=== PATIENT | male | born 1950 | race Caucasian/White ===

== ENCOUNTER 2019-10-02 11:20 | Inpatient (IN) | payer MEDICARE ==
[~2019-10-02] VITALS: Ht 182.9 cm; Wt 122.1 kg
[2019-10-02] MEDS ORDERED: CEFTRIAXONE SODIUM 1 GM ONE (12:21)
[2019-10-02 12:26] LABS: BASOPHILS % (AUTO) 0.9 % (0.0-5.0); EOSINOPHILS % (AUTO) 2.6 % (0.0-8.0); LYMPHOCYTES % (AUTO) 8.5 % (21.0-51.0); MEAN CORPUSCULAR HEMOGLOBIN 26.7 pg (27.0-33.0); MEAN CORPUSCULAR HGB CONC 30.9 g/dL (32.0-36.0); MEAN CORPUSCULAR VOLUME 86.4 fL (79-99); NEUTROPHILS % (AUTO) 77.8 % (40.0-77.0); PLATELET COUNT (AUTO) 219 K/uL (130-400); RED BLOOD CELL COUNT(AUTO) 4.05 MIL/uL (4.50-6.20); RED CELL DISTRIBUTION WIDTH 14.8 % (11.0-15.5); WHITE BLOOD COUNT (AUTO) 8.2 K/uL (4.8-10.8)
[2019-10-02 12:34] LABS: CREATININE 1.2 mg/dL (0.5-1.5); POTASSIUM 4.3 mmol/L (3.5-5.1)
[2019-10-02 12:36] LABS: INR 1.1 (0.85-1.15); PARTIAL THROMBOPLASTIN TIME 27.8 SEC (26.3-35.5); PROTHROMBIN TIME 11.8 SEC (9.6-11.6)
[2019-10-02 12:39] LABS: ALBUMIN 3.7 g/dL (3.5-5.0); BILIRUBIN,TOTAL 0.6 mg/dL (0.2-1.0); TOTAL PROTEIN, SERUM 7.4 g/dL (6.0-8.3)
[2019-10-02] MEDS ORDERED: ACETAMINOPHEN 325 MG TAB PO PRN ×2 (18:15)
[2019-10-02] MEDS ORDERED: ONDANSETRON HCL 4 MG/2 ML VIAL IV PRN (18:15)
[2019-10-02 18:16] LABS: HEMOGLOBIN A1C 7.3 % (4.0-6.0)
[2019-10-02] MEDS ORDERED: COMPOUND IV REFRIGERATED 1 EACH IVSOLN MISC PRN (19:15)
[2019-10-02] MEDS ORDERED: VANCOMYCIN PROTOCOL PER PHARMACY IV SCH (19:15)
[2019-10-02 19:54] LABS: ALBUMIN 3.5 g/dL (3.5-5.0); BILIRUBIN,TOTAL 0.8 mg/dL (0.2-1.0); CREATININE 1.1 mg/dL (0.5-1.5); POTASSIUM 4.3 mmol/L (3.5-5.1); TOTAL PROTEIN, SERUM 7.3 g/dL (6.0-8.3)
[2019-10-02 19:59] LABS: CREATINE KINASE, TOTAL 132 U/L (21-232); MYOGLOBIN 74 ng/mL (10-92); TROPONIN I < 0.04 ng/mL (0.00-0.06)
[2019-10-02 20:00] VITALS: BP 168/59
--- NOTE | 2019-10-02 21:08 | NUR ---
Patient received to room, having SOB, hob elevated, 02 placed in use per n/c at 2 liters. 02 up to 94%. Jessica BRIDGESP called and made aware of patient's status. I received orders for duo nebs, now and every 6 hours, continue with the 02 at 2 liters per n/c. Rt, called and informed of patient's status, informed of stat duo nebs, verbalized understanding.
[2019-10-02] MEDS ORDERED: IPRATROPIUM/ALBUTEROL SULFATE 3 ML SOLUTION IH SCH (21:15)
--- NOTE | 2019-10-02 21:57 | NUR ---
paged via answering service at [phone], returned call at [phone]. Informed of consults, informed of patient's condition, and of arterial, and venous dopplers done, results, also made him aware patient of patient's history, DM,COPD, CABG x5, in 1986. Informed him also of the EKG results SR W/VPC 79. Dr. Negrete stated to go ahead and have the day shift call the office in the morning and let them know of the consult. I asked the doctor if he would want patient on Tele. he said no.
[2019-10-02] MEDS: VANCOMYCIN 1.75 GM in SODIUM CHLORIDE 0.9% 250 ML IV SCH (23:01)
[2019-10-02] MEDS: FAMOTIDINE/PF 20 MG/2 ML VIAL IV SCH (23:01)
[2019-10-02] MEDS: ZOSYN 3.375GM+NS 50ML 50 ML IV SCH (23:08)
[2019-10-02] MEDS: MORPHINE SULFATE 2 MG/ML 1ML SYG IV PRN (23:10)
[2019-10-02] MEDS ORDERED: INSULIN HUMULIN R 100 UNIT/ML 3ML SQ SCH (23:30)
[2019-10-03] VITALS (7 sets, daily range): BP systolic 107–184; BP diastolic 63–79
[2019-10-03 04:01] LABS: BASOPHILS % (AUTO) 0.9 % (0.0-5.0); EOSINOPHILS % (AUTO) 1.7 % (0.0-8.0); HEMATOCRIT 34.3 % (42-54); LYMPHOCYTES % (AUTO) 7.7 % (21.0-51.0); MEAN CORPUSCULAR HEMOGLOBIN 26.3 pg (27.0-33.0); MEAN CORPUSCULAR HGB CONC 30.3 g/dL (32.0-36.0); MEAN CORPUSCULAR VOLUME 86.6 fL (79-99); MONOCYTES % (AUTO) 11.7 % (3.0-13.0); NEUTROPHILS % (AUTO) 77.6 % (40.0-77.0); PLATELET COUNT (AUTO) 227 K/uL (130-400); RED BLOOD CELL COUNT(AUTO) 3.96 MIL/uL (4.50-6.20); RED CELL DISTRIBUTION WIDTH 14.6 % (11.0-15.5); WHITE BLOOD COUNT (AUTO) 7.7 K/uL (4.8-10.8)
[2019-10-03 04:21] LABS: CHOLESTEROL 102 mg/dL (<200); HDL CHOLESTEROL 43 mg/dL (29-71); LDL DIRECT 51 mg/dL (0-99); PHOSPHORUS 3.1 mg/dL (2.5-4.9); TRIGLYCERIDES 68 mg/dL (30-200)
[2019-10-03 05:04] LABS: ERYTHROCYTE SEDIMENTATION RATE 40 MM/HR (0-20)
[2019-10-03] MEDS: ZOSYN 3.375GM+NS 50ML 50 ML IV SCH ×3 (06:13→21:13)
[2019-10-03] MEDS: IPRATROPIUM/ALBUTEROL SULFATE 3 ML SOLUTION IH SCH ×3 (07:00→18:46)
[2019-10-03] MEDS: INSULIN LISPRO 100 UNIT/ML 3ML SQ SCH ×7 (07:01→21:19)
[2019-10-03] MEDS ORDERED: INSULIN HUMULIN R 100 UNIT/ML 3ML SQ SCH (07:30)
--- NOTE | 2019-10-03 07:40 | NUR ---
Report given to Shasta BORJAS regarding patient's status, reason patient is here for informed her of notifying and him stating to have day shift call the office in the morning and inform them of the consult. Informed incoming nurse of patient history, and his progress during the night. Also informed her patient came in the ambulance and did not bring his medication with him. Patient instructed to please let his know to bring in medications and his BIPAP, patient verbalized understanding.
[2019-10-03] MEDS: VANCOMYCIN 1.75 GM in SODIUM CHLORIDE 0.9% 250 ML IV SCH ×2 (08:00→20:14)
--- NOTE | 2019-10-03 08:10 | NUR ---
CONSULTS PAGED CROWN ASSEMBLY MACHINE SET UP MECHANIC INFORMED ME DR. MASTERS IS AWARE OF CONSULT. DR. TERRAZAS HAS BEEN PAGED REGARDING CONSULT, AND DR. BISHNU VENCES ALSO HAS BEEN PAGED REGARDING CONSULT.
[2019-10-03] MEDS: ENOXAPARIN SODIUM 30 MG/0.3 ML SQ SCH (10:25)
[2019-10-03] MEDS: FAMOTIDINE/PF 20 MG/2 ML VIAL IV SCH ×2 (10:25→21:13)
[2019-10-03] MEDS: ASPIRIN 81MG TAB.CHEW PO SCH (10:26)
--- NOTE | 2019-10-03 10:30 | NUR ---
ASSUMED CARE PT IS SLEEPING WITH EYES CLOSED, NO DISTRESS NOTED.
--- NOTE | 2019-10-03 13:25 | NUR ---
CALL FROM DR. TERRAZAS T/C FROM , ORDERS FOR MRI WITHOUT CONTRAST OF RIGHT FOOT AND 3 VIEW X RAY OF FOOT, STATES ALIS COME LATER TO SEE HIM.
--- NOTE | 2019-10-03 13:55 | NUR ---
DR. SONAM SANTOS HERE TO SEE PT, NO ORDERS, CONTINUE ANTIBIOTICS
--- NOTE | 2019-10-03 15:15 | NUR ---
BACK FROM X-RAY DEPT RT. FOOT MRI AND XRAY DONE.
--- NOTE | 2019-10-03 16:05 | NUR ---
DR. VENCES WITH [facility] IN TO SEE PT. WILL ENTER ORDERS
--- NOTE | 2019-10-03 16:23 | NUR ---
RT. LOWER EXTREMITY WITH SOME SWELLING AND SKIN DRY ,FLAKY AND RED . ULCER NOTED TO RT. GREATER TOE. AREA NECROTIC.
[2019-10-03] MEDS ORDERED: IOHEXOL-350 75 ML VIAL IV ONE (18:44)
[2019-10-03] MEDS ORDERED: IOHEXOL-350 50ML VIAL IV ONE (18:44)
--- NOTE | 2019-10-03 18:48 | NUR ---
CONSENT SIGNED FOR CT. ANGIO ABD. AORTA WITH RUN OFF.
--- NOTE | 2019-10-03 19:52 | NUR ---
SKIN ASS. ADDENDUM BILAT. LE HYPERPIGMENTED AREAS DISTAL 3/4TH, DRY SCALY APPEARANCE , Addendum: 10/04/19 at 0450 by SCOT WALSH RN RN Amended: Links added.
[2019-10-03] MEDS: ATORVASTATIN CALCIUM 20 MG TABLET PO SCH (21:13)
[2019-10-03] MEDS: INSULIN GLARGINE 100 UNITS/ML 10 ML VIAL SQ SCH (21:18)
[2019-10-03] MEDS: FUROSEMIDE 10 MG/ML 2ML VIAL IV SCH (22:52)
[2019-10-04] MEDS: IPRATROPIUM/ALBUTEROL SULFATE 3 ML SOLUTION IH SCH ×5 (00:08→23:15)
[2019-10-04 03:43] VITALS: BP 139/64
[2019-10-04] MEDS: ZOSYN 3.375GM+NS 50ML 50 ML IV SCH ×3 (04:45→20:27)
[2019-10-04] MEDS: INSULIN LISPRO 100 UNIT/ML 3ML SQ SCH ×7 (06:57→22:29)
[2019-10-04] MEDS: FUROSEMIDE 10 MG/ML 2ML VIAL IV SCH (08:49)
[2019-10-04] MEDS: FAMOTIDINE/PF 20 MG/2 ML VIAL IV SCH ×2 (08:49→20:27)
[2019-10-04] MEDS: ENOXAPARIN SODIUM 30 MG/0.3 ML SQ SCH (08:50)
[2019-10-04] MEDS: VANCOMYCIN 1.75 GM in SODIUM CHLORIDE 0.9% 250 ML IV SCH ×2 (08:50→20:27)
[2019-10-04] MEDS: ASPIRIN 81MG TAB.CHEW PO SCH (08:50)
[2019-10-04 09:20] LABS: HEMATOCRIT 32.2 % (42-54); MEAN CORPUSCULAR HEMOGLOBIN 26.8 pg (27.0-33.0); MEAN CORPUSCULAR HGB CONC 31.1 g/dL (32.0-36.0); MEAN CORPUSCULAR VOLUME 86.3 fL (79-99); RED BLOOD CELL COUNT(AUTO) 3.73 MIL/uL (4.50-6.20); RED CELL DISTRIBUTION WIDTH 14.8 % (11.0-15.5)
[2019-10-04 09:30] LABS: BILIRUBIN,TOTAL 0.8 mg/dL (0.2-1.0); POTASSIUM 4.1 mmol/L (3.5-5.1); TOTAL PROTEIN, SERUM 6.6 g/dL (6.0-8.3)
[2019-10-04 09:57] VITALS: BP 104/65
--- NOTE | 2019-10-04 12:00 | NUR ---
INITIAL SW spoke with patient. Patient lives with spouse, Keren Yoon. No home services. DME: glucometer (uses insulin). Patient states he needs help with AD:'s due to back problem but drives. No PCP at this time. Pharmacy is [facility] in [place]. DCP is home. Addendum: 10/04/19 at 1202 by MAYELA CARLSON SS Amended: Links added.
[2019-10-04 12:32] VITALS: BP 129/45
[2019-10-04] MEDS: FUROSEMIDE 20 MG TABLET PO SCH (15:45)
[2019-10-04 18:45] VITALS: BP 155/58
[2019-10-04 20:13] VITALS: BP 155/49
[2019-10-04] MEDS: ATORVASTATIN CALCIUM 20 MG TABLET PO SCH (20:27)
[2019-10-04] MEDS: MORPHINE SULFATE 2 MG/ML 1ML SYG IV PRN (21:50)
[2019-10-04] MEDS: INSULIN GLARGINE 100 UNITS/ML 10 ML VIAL SQ SCH (22:28)
[2019-10-04 23:53] VITALS: BP 147/57
[2019-10-05 04:12] VITALS: BP 133/47
[2019-10-05] MEDS: ZOSYN 3.375GM+NS 50ML 50 ML IV SCH ×3 (05:11→20:02)
[2019-10-05] MEDS: FUROSEMIDE 20 MG TABLET PO SCH ×2 (05:11→17:08)
[2019-10-05 05:54] LABS: BASOPHILS % (AUTO) 0.7 % (0.0-5.0); EOSINOPHILS % (AUTO) 5.1 % (0.0-8.0); HEMATOCRIT 32.3 % (42-54); LYMPHOCYTES % (AUTO) 9.7 % (21.0-51.0); MEAN CORPUSCULAR HEMOGLOBIN 26.5 pg (27.0-33.0); MEAN CORPUSCULAR HGB CONC 30.7 g/dL (32.0-36.0); MEAN CORPUSCULAR VOLUME 86.6 fL (79-99); MONOCYTES % (AUTO) 11.6 % (3.0-13.0); NEUTROPHILS % (AUTO) 72.5 % (40.0-77.0); PLATELET COUNT (AUTO) 215 K/uL (130-400); RED BLOOD CELL COUNT(AUTO) 3.73 MIL/uL (4.50-6.20); RED CELL DISTRIBUTION WIDTH 14.8 % (11.0-15.5); WHITE BLOOD COUNT (AUTO) 8.1 K/uL (4.8-10.8)
[2019-10-05 06:12] LABS: ALBUMIN 2.8 g/dL (3.5-5.0); CREATININE 0.9 mg/dL (0.5-1.5); TOTAL PROTEIN, SERUM 6.6 g/dL (6.0-8.3)
[2019-10-05] MEDS: IPRATROPIUM/ALBUTEROL SULFATE 3 ML SOLUTION IH SCH ×3 (06:13→18:35)
[2019-10-05] MEDS: INSULIN LISPRO 100 UNIT/ML 3ML SQ SCH ×7 (07:29→20:46)
[2019-10-05 08:14] VITALS: BP 164/63
[2019-10-05] MEDS: VANCOMYCIN 1.75 GM in SODIUM CHLORIDE 0.9% 250 ML IV SCH ×2 (08:36→20:58)
[2019-10-05] MEDS: ASPIRIN 81MG TAB.CHEW PO SCH (08:37)
[2019-10-05] MEDS: FAMOTIDINE/PF 20 MG/2 ML VIAL IV SCH ×2 (08:37→20:02)
[2019-10-05] MEDS: ENOXAPARIN SODIUM 30 MG/0.3 ML SQ SCH (08:38)
[2019-10-05 11:44] VITALS: BP 143/69
[2019-10-05] MEDS ORDERED: SODIUM CHLORIDE 0.9% 500ML 500 ML IV SCH (14:45)
[2019-10-05 15:48] VITALS: BP 153/57
[2019-10-05] MEDS: ASPIRIN 81 MG EC TAB PO SCH (19:15)
[2019-10-05] MEDS ORDERED: LISINOPRIL 5 MG TABLET PO SCH (19:15)
[2019-10-05 20:02] VITALS: BP 143/53
[2019-10-05] MEDS: ATORVASTATIN CALCIUM 20 MG TABLET PO SCH (20:02)
--- NOTE | 2019-10-05 20:05 | NUR ---
MEDS SHIFT ASSESSMENT DONE, PLEASE REFER TO CHART. DUE MEDS ADMINISTERED, TOLERATED WELL. INSTRUCTED TO BE NPO POST MN FOR PROCEDURE IN AM. PT VERBALIZES UNDERSTANDING. KEPT RESTED IN THE BED WITH HOB ELEVATED. CALL LIGHT WITHIN REACH. WILL MONITOR PT. Addendum: 10/05/19 at 2250 by RUSTY WOODS RN RN Amended: Links added.
--- NOTE | 2019-10-05 20:37 | NUR ---
TROUGH VANCO TROUGH LEVEL FAXED TO [facility] AND CALLED FOR DOSING, SPOKED WITH NADIA.
[2019-10-05] MEDS: INSULIN GLARGINE 100 UNITS/ML 10 ML VIAL SQ SCH (20:47)
--- NOTE | 2019-10-05 21:40 | NUR ---
PROCEDURE CALLED [facility]OURCE NURSE FOR SCHEDULED PROCEDURE. NONE SCHEDULED FOR PT. FAXED ORDER TO [facility] FOR POSTING OF PROCEDURE.
--- NOTE | 2019-10-05 22:30 | NUR ---
MED LIST ASKED PT OF HOME MEDS. REVIEW ANALYST WAS INFORMED THAT 2 NURSE ALREADY GOT LIST. EXPLAINED TO PT THAT NONE WAS LISTED ON HIS CHART AND UNABLE TO FIND LIST. VERIFIED LIST OF MEDS WITH PT'S VIA PHONE. HOME MED LIST COMPLETED IN THE COMPUTER.
[2019-10-05] MEDS ORDERED: B-CO1TAB PO (23:12)
[2019-10-05] MEDS ORDERED: CARV12.511 PO (23:12)
[2019-10-05] MEDS ORDERED: ASPI-1197 PO (23:12)
[2019-10-05] MEDS ORDERED: INSREG SQ (23:12)
[2019-10-05] MEDS ORDERED: MV-M1TAB20 PO (23:12)
[2019-10-05] MEDS ORDERED: POTA20TA82 PO (23:12)
[2019-10-05] MEDS ORDERED: NPH,100V11 SQ (23:12)
[2019-10-05] MEDS ORDERED: CALC-1038 PO (23:12)
[2019-10-05] MEDS ORDERED: SIMV-46 PO (23:12)
[2019-10-05] MEDS ORDERED: METF-526 PO (23:12)
[2019-10-05] MEDS ORDERED: MULT-1258 PO (23:12)
[2019-10-05] MEDS ORDERED: FURO40TA5 PO (23:12)
[2019-10-05] MEDS ORDERED: LISI-613 PO (23:12)
[2019-10-05] MEDS ORDERED: OMEG-125 PO (23:12)
[2019-10-06] VITALS (12 sets, daily range): BP systolic 83–173; BP diastolic 55–81
--- NOTE | 2019-10-06 01:26 | NUR ---
U/A PT INSISTED TO GO TO THE RESTROOM TO HAVE A BM. PT REFUSED TO USE THE BEDSIDE COMMODE. URINE SAMPLE COLLECTED BY PCP AND SENT TO LAB FOR ANALYSIS. PT UNABLE TO MOVE HIS BOWELS AT THIS TIME.
[2019-10-06 01:51] LABS: APPEARANCE,URINE Clear (CLEAR); BILIRUBIN,URINE Negative (NEGATIVE); COLOR,URINE Yellow (YELLOW); GLUCOSE, URINE (UA) 500 mg/dL (NEGATIVE); KETONES,URINE Negative (NEGATIVE); LEUKOCYTE ESTERASE ,URINE Negative (NEGATIVE); NITRATE,URINE Negative (NEGATIVE); OCCULT BLOOD,URINE Negative (NEGATIVE); PROTEIN,URINE POS 1+ mg/dL (NEGATIVE)
[2019-10-06] MEDS: ZOSYN 3.375GM+NS 50ML 50 ML IV SCH ×3 (04:06→21:14)
[2019-10-06] MEDS: FUROSEMIDE 20 MG TABLET PO SCH ×2 (04:07→16:40)
[2019-10-06 05:38] LABS: BASOPHILS % (AUTO) 0.7 % (0.0-5.0); EOSINOPHILS % (AUTO) 6.2 % (0.0-8.0); HEMATOCRIT 32.7 % (42-54); LYMPHOCYTES % (AUTO) 10.3 % (21.0-51.0); MEAN CORPUSCULAR HGB CONC 30.3 g/dL (32.0-36.0); MEAN CORPUSCULAR VOLUME 85.8 fL (79-99); MONOCYTES % (AUTO) 10.2 % (3.0-13.0); NEUTROPHILS % (AUTO) 72.2 % (40.0-77.0); PLATELET COUNT (AUTO) 224 K/uL (130-400); RED BLOOD CELL COUNT(AUTO) 3.81 MIL/uL (4.50-6.20); RED CELL DISTRIBUTION WIDTH 14.6 % (11.0-15.5); WHITE BLOOD COUNT (AUTO) 7.6 K/uL (4.8-10.8)
[2019-10-06] MEDS: INSULIN LISPRO 100 UNIT/ML 3ML SQ SCH ×7 (05:52→21:18)
--- NOTE | 2019-10-06 05:54 | NUR ---
ROUNDS PT FAIRLY ASLEEP, NO DISTRESS NOTED. KEPT UNDISTURBED. KEPT NPO FOR PROCEDURE TODAY. FOR MORE CARE AND MANAGEMENT.
[2019-10-06 06:02] LABS: ALBUMIN 2.8 g/dL (3.5-5.0); BILIRUBIN,TOTAL 0.8 mg/dL (0.2-1.0); POTASSIUM 4.1 mmol/L (3.5-5.1); TOTAL PROTEIN, SERUM 6.8 g/dL (6.0-8.3)
[2019-10-06] MEDS: IPRATROPIUM/ALBUTEROL SULFATE 3 ML SOLUTION IH SCH ×3 (06:19→13:16)
[2019-10-06] MEDS: FAMOTIDINE/PF 20 MG/2 ML VIAL IV SCH ×2 (08:42→21:13)
[2019-10-06] MEDS: VANCOMYCIN 1.75 GM in SODIUM CHLORIDE 0.9% 250 ML IV SCH ×2 (08:42→21:15)
[2019-10-06] MEDS: ASPIRIN 81 MG EC TAB PO SCH (09:00)
[2019-10-06] MEDS ORDERED: IODIXANOL 320 MG/ML 100 ML VIAL ONE (11:34)
[2019-10-06] MEDS ORDERED: LIDOCAINE HCL 2% 20ML ONE (11:34)
[2019-10-06] MEDS ORDERED: NITROGLYCERIN 2 MG/VIAL VIAL IV ONE (11:34)
[2019-10-06] MEDS ORDERED: HEPARIN SODIUM 1000UNIT/ML 10ML VIAL ONE (11:34)
[2019-10-06] MEDS ORDERED: LABETALOL HCL 5 MG/ML 20ML VIAL IV ONE (11:59)
[2019-10-06] MEDS ORDERED: SODIUM CHLORIDE 0.9% 1000ML 1,000 ML IV SCH (12:23)
--- NOTE | 2019-10-06 13:28 | NUR ---
CM Note: [facility] approval CM spoke to Jeannette aguilar/Davey, pt has approval. MOT filled out, pending and reginaldo super to sign. EMS arranged and faxed for today, primary nurse to call [facility] once pt ready to DC. Primary nurse aware. CM to cont to follow up.
--- NOTE | 2019-10-06 14:55 | NUR ---
PATIENT TRANSFER PATIENT TRANSFERRED TO ROOM 227 AT APPROX 1445 HOURS. REPORT GIVEN TO CHRISTIAN BORJAS AT APPROX 1430.
--- NOTE | 2019-10-06 15:00 | NUR ---
ARRIVAL TO ROOM 227 PT IS AAOX3 DENIES PAIN DENIES SOB. BEDREST IN PROGRESS. LEFT GROIN DSTAT IN PLACE, CLEAN DRY INTACT. NO HEMATOMA NO OOZING NOTED. CALL LIGHT WITHIN REACH.
[2019-10-06] MEDS ORDERED: ALBUTEROL INHALER 90MCG/INH IH SCH (18:00)
--- NOTE | 2019-10-06 19:57 | NUR ---
NOTE PATIENT TAKEN VIA BED BY RADIOLOGY STAFF FOR CT SCAN.
--- NOTE | 2019-10-06 20:26 | NUR ---
NOTE PATIENT WAS RETURNED TO ROOM.
[2019-10-06] MEDS: ATORVASTATIN CALCIUM 20 MG TABLET PO SCH (21:13)
[2019-10-06] MEDS: LISINOPRIL 5 MG TABLET PO SCH (21:13)
[2019-10-06] MEDS: CARVEDILOL 6.25 MG TABLET PO SCH (21:14)
[2019-10-06] MEDS: INSULIN GLARGINE 100 UNITS/ML 10 ML VIAL SQ SCH (21:18)
[2019-10-07 04:00] VITALS: BP 159/80
[2019-10-07] MEDS: FUROSEMIDE 20 MG TABLET PO SCH ×2 (05:13→15:18)
[2019-10-07] MEDS: ZOSYN 3.375GM+NS 50ML 50 ML IV SCH ×3 (05:13→21:19)
[2019-10-07] MEDS: INSULIN LISPRO 100 UNIT/ML 3ML SQ SCH ×7 (05:42→20:26)
[2019-10-07 06:28] LABS: BASOPHILS % (AUTO) 0.8 % (0.0-5.0); EOSINOPHILS % (AUTO) 4.9 % (0.0-8.0); HEMATOCRIT 33.6 % (42-54); LYMPHOCYTES % (AUTO) 8.4 % (21.0-51.0); MEAN CORPUSCULAR HGB CONC 30.4 g/dL (32.0-36.0); MEAN CORPUSCULAR VOLUME 85.7 fL (79-99); MONOCYTES % (AUTO) 10.2 % (3.0-13.0); NEUTROPHILS % (AUTO) 75.4 % (40.0-77.0); PLATELET COUNT (AUTO) 238 K/uL (130-400); RED BLOOD CELL COUNT(AUTO) 3.92 MIL/uL (4.50-6.20); RED CELL DISTRIBUTION WIDTH 14.6 % (11.0-15.5)
[2019-10-07 06:49] LABS: ALBUMIN 2.9 g/dL (3.5-5.0); BILIRUBIN,TOTAL 0.8 mg/dL (0.2-1.0); CREATININE 1.1 mg/dL (0.5-1.5); POTASSIUM 4.4 mmol/L (3.5-5.1)
[2019-10-07] MEDS: FAMOTIDINE/PF 20 MG/2 ML VIAL IV SCH ×2 (07:53→21:18)
[2019-10-07] MEDS: ASPIRIN 81 MG EC TAB PO SCH (07:53)
[2019-10-07] MEDS: POTASSIUM CHLORIDE 20 MEQ ERTAB PO SCH (07:54)
[2019-10-07] MEDS: LISINOPRIL 5 MG TABLET PO SCH ×2 (07:56→21:19)
[2019-10-07] MEDS: CARVEDILOL 6.25 MG TABLET PO SCH ×2 (07:56→21:19)
[2019-10-07] MEDS: ENOXAPARIN SODIUM 40 MG/0.4 ML SYRINGE SQ SCH (07:57)
[2019-10-07 08:23] VITALS: BP 158/79
[2019-10-07] MEDS ORDERED: FUROSEMIDE 40 MG TABLET PO SCH (09:00)
[2019-10-07] MEDS: VANCOMYCIN 1.75 GM in SODIUM CHLORIDE 0.9% 250 ML IV SCH ×2 (10:09→21:22)
[2019-10-07] MEDS ORDERED: REGADENOSON 0.4 MG/5 ML PF SYG IVP SCH (12:15)
[2019-10-07 12:31] VITALS: BP 156/72
[2019-10-07 16:39] VITALS: BP 134/53
[2019-10-07 20:09] VITALS: BP 127/79
[2019-10-07] MEDS: FUROSEMIDE 10 MG/ML 4ML VIAL IV SCH (21:18)
[2019-10-07] MEDS: ATORVASTATIN CALCIUM 40 MG TABLET PO SCH (21:19)
[2019-10-07] MEDS: INSULIN GLARGINE 100 UNITS/ML 10 ML VIAL SQ SCH (21:21)
--- NOTE | 2019-10-07 22:30 | NUR ---
REPORT GIVEN TO 3RD FLOOR NURE PT TRANSFERRED PT DENIES SOB OR CHEST PAIN
[2019-10-07 23:05] VITALS: BP 142/70
--- NOTE | 2019-10-07 23:08 | NUR ---
NOTE 2239 RECEIVED REPORT VIA PHONE FROM Eliana CHEN RN. WILL BE BRINGING PATIENT. UP TO FLOOR. 2309 PATIENT IN ROOM. ALERT AND ORIENTED. PROVIDED ORIENTATION TO ROOM AND CALL LIGHT. BED ALARM ACTIVATED. HAS VANCOMYCIN INFUSING. DENIES ANY PAINS OR DISCOMFORTS. DENIES SOB. HAS CPAP AT BEDSIDE, BUT NOT CURRENTLY ON.
[2019-10-08 04:00] VITALS: BP 148/65
[2019-10-08 07:19] LABS: POTASSIUM 3.8 mmol/L (3.5-5.1)
[2019-10-08] MEDS: ZOSYN 3.375GM+NS 50ML 50 ML IV SCH ×3 (07:29→22:02)
[2019-10-08] MEDS: INSULIN LISPRO 100 UNIT/ML 3ML SQ SCH ×7 (07:30→21:00)
[2019-10-08 08:55] VITALS: BP 129/69
--- NOTE | 2019-10-08 10:00 | NUR ---
DR. BANKS SPOKE TO MD VIA TELEPHOEN REGARDING CONSULT.
[2019-10-08 10:11] LABS: ABG BASE EXCESS 6.3 mmol/L (-2.0-3.0); ABG HCO3 33.4 mmol/L (21.0-28.0); ABG OXYGEN SATURATION 86.1 % (95.0-99.0); ABG PCO2 62 mmHg (35-48)
[2019-10-08] MEDS ORDERED: IPRATROPIUM/ALBUTEROL SULFATE 3 ML SOLUTION IH PRN (10:15)
[2019-10-08] MEDS: FAMOTIDINE/PF 20 MG/2 ML VIAL IV SCH ×2 (10:24→21:55)
[2019-10-08] MEDS: FUROSEMIDE 10 MG/ML 4ML VIAL IV SCH ×2 (10:24→21:53)
[2019-10-08] MEDS: CARVEDILOL 6.25 MG TABLET PO SCH ×2 (10:25→21:54)
[2019-10-08] MEDS: POTASSIUM CHLORIDE 20 MEQ ERTAB PO SCH (10:26)
[2019-10-08] MEDS: LISINOPRIL 5 MG TABLET PO SCH ×2 (10:26→21:55)
[2019-10-08] MEDS: ASPIRIN 81 MG EC TAB PO SCH (10:26)
[2019-10-08] MEDS: ENOXAPARIN SODIUM 40 MG/0.4 ML SYRINGE SQ SCH (10:33)
[2019-10-08 11:00] VITALS: BP 150/50
[2019-10-08] MEDS ORDERED: ALBUTEROL INHALER 90MCG/INH IH PRN (11:00)
--- NOTE | 2019-10-08 15:48 | NUR ---
DYSPHAGIA KEITH COMPLETED +S/S OF ASPIRATION AT THIS TIME. RECOMMEND NPO UNTIL MBSS. DEPARTMENT HEAD COLLEGE OR UNIVERSITY COORDINATED WITH NURSE RAMONITA. Addendum: 10/08/[address] FREDERIC DAUGHERTY Amended: Links added.
[2019-10-08 16:41] VITALS: BP 150/61
[2019-10-08 20:00] VITALS: BP 164/84
[2019-10-08] MEDS: ATORVASTATIN CALCIUM 40 MG TABLET PO SCH (21:53)
[2019-10-08] MEDS: ZINC OXIDE OINT 60GM TUBE TP SCH (21:56)
[2019-10-08] MEDS: INSULIN GLARGINE 100 UNITS/ML 10 ML VIAL SQ SCH (21:58)
[2019-10-08 23:27] VITALS: BP 149/71
[2019-10-09 03:33] VITALS: BP 149/62
[2019-10-09] MEDS: INSULIN LISPRO 100 UNIT/ML 3ML SQ SCH ×7 (05:59→20:57)
[2019-10-09] MEDS: ZOSYN 3.375GM+NS 50ML 50 ML IV SCH ×3 (05:59→20:50)
[2019-10-09 06:03] LABS: BASOPHILS % (AUTO) 0.7 % (0.0-5.0); EOSINOPHILS % (AUTO) 6.5 % (0.0-8.0); HEMATOCRIT 35.6 % (42-54); LYMPHOCYTES % (AUTO) 10.8 % (21.0-51.0); MEAN CORPUSCULAR HEMOGLOBIN 25.8 pg (27.0-33.0); MEAN CORPUSCULAR HGB CONC 29.5 g/dL (32.0-36.0); MEAN CORPUSCULAR VOLUME 87.5 fL (79-99); MONOCYTES % (AUTO) 9.7 % (3.0-13.0); NEUTROPHILS % (AUTO) 71.8 % (40.0-77.0); PLATELET COUNT (AUTO) 240 K/uL (130-400); RED BLOOD CELL COUNT(AUTO) 4.07 MIL/uL (4.50-6.20); RED CELL DISTRIBUTION WIDTH 14.6 % (11.0-15.5); WHITE BLOOD COUNT (AUTO) 8.4 K/uL (4.8-10.8)
[2019-10-09 06:53] LABS: POTASSIUM 3.7 mmol/L (3.5-5.1)
[2019-10-09] MEDS ORDERED: VANCOMYCIN 1.75 GM in SODIUM CHLORIDE 0.9% 250 ML IV SCH (07:45)
[2019-10-09 07:50] VITALS: BP 155/74
[2019-10-09] MEDS ORDERED: VANCOMYCIN 1.5 GM in SODIUM CHLORIDE 0.9% 250 ML IV SCH (08:00)
[2019-10-09] MEDS: LISINOPRIL 5 MG TABLET PO SCH ×2 (09:00→20:52)
[2019-10-09] MEDS: POTASSIUM CHLORIDE 20 MEQ ERTAB PO SCH (09:00)
[2019-10-09] MEDS: CARVEDILOL 6.25 MG TABLET PO SCH ×2 (09:00→20:51)
[2019-10-09] MEDS: ASPIRIN 81 MG EC TAB PO SCH (09:00)
[2019-10-09] MEDS: FAMOTIDINE/PF 20 MG/2 ML VIAL IV SCH ×2 (10:07→20:50)
[2019-10-09] MEDS: FUROSEMIDE 10 MG/ML 4ML VIAL IV SCH ×2 (10:07→20:53)
[2019-10-09] MEDS: ENOXAPARIN SODIUM 40 MG/0.4 ML SYRINGE SQ SCH (10:08)
[2019-10-09] MEDS: ZINC OXIDE OINT 60GM TUBE TP SCH (10:09)
--- NOTE | 2019-10-09 10:30 | NUR ---
MBSS COMPLETED. DEEP TRANSIENT PENETRATION WITH THIN AT THIS TIME. RECOMMEND MECHANICAL SOFT/GROUND (NO MIXED TEXTURES), HONEY THICK LIQUIDS, PILLS CRUSHED WITH APPLESAUCE TOLERATED. QUALITY ASSURANCE REPRESENTATIVE EDUCATED Pt ON RISK AND CONSEQUENCES OF ASPIRATION. QUALITY ASSURANCE REPRESENTATIVE COORDINATED WITH NURSE ABOUT RESULTS AND RECOMMENDATIONS. RECOMMENDATIONS: DYSPHAGIA THERAPY 3-5XWEEK TO INCREASE ORAL MOTOR STRENGTH AND PHARYNGEAL SWALLOW: LTG#1: Pt WILL TOLERATE LEAST RESTRICTIVE DIET TO MEET NUTRITION/HYDRATION WITH NO S/S OF ASPIRATION. LTG#2: SKILLED EDUCATION Pt/FAMILY/STAFF STG#1: Pt WILL PARTICIPATE IN LARYNGEAL ELEVATION/EXCURSION EXERCISES WITH 80% ACCURACY. STG#2: Pt WILL PARTICIPATE IN TONGUE BASE RETRACTION EXERCISES WITH 80% ACCURACY. STG#3: Pt WILL PARTICIPATE IN ORAL MOTOR EXERCISES WITH 80% ACCURACY. STG#4: Pt WILL TOLERATE THERAPEUTIC TRIALS OF NECTAR THICK LIQUIDS WITH NO OVERT S/S OF ASPIRATION. STG#5: Pt WILL BE ABLE TO PARTICIPATE IN MBSS AFTER 2-4 WEEKS OF THERAPEUTIC INTERVENTION. STG#6: SKILLED EDUCATION Pt/FAMILY/STAFF. Addendum: 10/09/[address] FREDERIC DAUGHERTY Amended: Links added.
--- NOTE | 2019-10-09 11:00 | NUR ---
DR. SONAM PINTO HERE TO SEE PATIENT. TOLD ME FOR PATIENT TO CONTINUE LIZY AND AGNIESZKA AT [facility].
[2019-10-09 11:33] VITALS: BP 155/53
--- NOTE | 2019-10-09 12:00 | NUR ---
DR. CONCETTA PINTO INFORMED OF MBSS RESULTS.
[2019-10-09 16:43] VITALS: BP 135/53
--- NOTE | 2019-10-09 16:45 | NUR ---
DR. KULDEEP PINTO HERE TO SEE PATIENT. SPOKE TO DR. HYLTON REGARDING RECOMMENDATIONS
[2019-10-09 19:34] VITALS: BP 100/46
[2019-10-09] MEDS: VANCOMYCIN 1.5 GM in SODIUM CHLORIDE 0.9% 250 ML IV SCH (20:00)
[2019-10-09] MEDS: ATORVASTATIN CALCIUM 40 MG TABLET PO SCH (20:50)
[2019-10-09] MEDS: INSULIN GLARGINE 100 UNITS/ML 10 ML VIAL SQ SCH (20:54)
[2019-10-09 23:36] VITALS: BP 151/55
[2019-10-10] MEDS: ZOSYN 3.375GM+NS 50ML 50 ML IV SCH ×2 (03:52→13:54)
[2019-10-10] MEDS: ZINC OXIDE OINT 60GM TUBE TP SCH ×2 (03:53→10:37)
[2019-10-10 04:00] VITALS: BP 142/53
[2019-10-10 05:18] LABS: BASOPHILS % (AUTO) 0.6 % (0.0-5.0); EOSINOPHILS % (AUTO) 5.8 % (0.0-8.0); HEMATOCRIT 35.5 % (42-54); LYMPHOCYTES % (AUTO) 11.5 % (21.0-51.0); MEAN CORPUSCULAR HEMOGLOBIN 26.4 pg (27.0-33.0); MEAN CORPUSCULAR HGB CONC 30.1 g/dL (32.0-36.0); MEAN CORPUSCULAR VOLUME 87.4 fL (79-99); MONOCYTES % (AUTO) 10.9 % (3.0-13.0); NEUTROPHILS % (AUTO) 70.8 % (40.0-77.0); PLATELET COUNT (AUTO) 266 K/uL (130-400); RED BLOOD CELL COUNT(AUTO) 4.06 MIL/uL (4.50-6.20); RED CELL DISTRIBUTION WIDTH 14.6 % (11.0-15.5); WHITE BLOOD COUNT (AUTO) 8.4 K/uL (4.8-10.8)
[2019-10-10 05:31] LABS: POTASSIUM 3.6 mmol/L (3.5-5.1)
[2019-10-10] MEDS: INSULIN LISPRO 100 UNIT/ML 3ML SQ SCH ×6 (06:37→17:06)
[2019-10-10 08:00] VITALS: BP 126/51
[2019-10-10] MEDS: FUROSEMIDE 10 MG/ML 4ML VIAL IV SCH (10:33)
[2019-10-10] MEDS: FAMOTIDINE/PF 20 MG/2 ML VIAL IV SCH (10:33)
[2019-10-10] MEDS: ASPIRIN 81 MG EC TAB PO SCH (10:34)
[2019-10-10] MEDS: LISINOPRIL 5 MG TABLET PO SCH (10:34)
[2019-10-10] MEDS: CARVEDILOL 6.25 MG TABLET PO SCH (10:35)
[2019-10-10] MEDS: POTASSIUM CHLORIDE 20 MEQ ERTAB PO SCH (10:35)
[2019-10-10] MEDS: ENOXAPARIN SODIUM 40 MG/0.4 ML SYRINGE SQ SCH (10:36)
[2019-10-10 11:00] VITALS: BP 152/61
[2019-10-10] MEDS: VANCOMYCIN 1.5 GM in SODIUM CHLORIDE 0.9% 250 ML IV SCH (13:54)
[2019-10-10 16:00] VITALS: BP 136/50
--- NOTE | 2019-10-10 16:00 | NUR ---
CHART COPIED, D/C REPORT CALLED AND FAXED TO KRISTA AT [facility], EMS ARRANGEMENTS MADE AND I HAVE CALLED AND CONFIRMED PICKUP; PT TO BE TRANSFERED TO [facility] AFTER 5PM SO HE CAN EAT DINNER AND RECEIVED HIS SCHEDULED INSULIN. PT TRANSFERING FOR 4 WEEKS OF IV ABX FOR CELLULITIS TREATMENT; PT STATES UNDERSTANDING OF TRANSFER NEED; I WILL LEAVE IV ACCESS IN PLACE FOR [facility] TO USE; I HAVE TAKEN D/C PICTURE OF RIGHT LEG AND RIGHT TOE.
== END 2019-10-10 17:40 | DRG 871 ==
LOC: EDH 11:20 → EDHIP 16:44 → 3AH 20:24 → 2DH 10-06 15:09 → 3DH 10-07 23:56
PROVIDERS: ADMIT Internal Medicine; ATTEND Internal Medicine
PROC: B4101ZZ Fluoroscopy of Abdominal Aorta using Low Osmolar Contrast (ICD-10-PCS; principal; 2019-10-06)
PROC: B41F1ZZ Fluoroscopy of Right Lower Extremity Arteries using Low Osmolar Contrast (ICD-10-PCS; 2019-10-06)
DX: A41.9 Sepsis, unspecified organism (principal); J18.9 Pneumonia, unspecified organism; J96.01 Acute respiratory failure with hypoxia; L03.115 Cellulitis of right lower limb; J44.0 Chronic obstructive pulmonary disease with (acute) lower respiratory infection; J98.11 Atelectasis; E11.51 Type 2 diabetes mellitus with diabetic peripheral angiopathy without gangrene; L97.519 Non-pressure chronic ulcer of other part of right foot with unspecified severity; E11.621 Type 2 diabetes mellitus with foot ulcer; L03.031 Cellulitis of right toe; Z68.36 Body mass index [BMI] 36.0-36.9, adult; D64.9 Anemia, unspecified; B35.1 Tinea unguium; E11.42 Type 2 diabetes mellitus with diabetic polyneuropathy; E66.01 Morbid (severe) obesity due to excess calories; E78.5 Hyperlipidemia, unspecified; F17.200 Nicotine dependence, unspecified, uncomplicated; G47.00 Insomnia, unspecified; I10 Essential (primary) hypertension; I25.10 Atherosclerotic heart disease of native coronary artery without angina pectoris; I70.0 Atherosclerosis of aorta; I70.1 Atherosclerosis of renal artery; I87.2 Venous insufficiency (chronic) (peripheral); I87.8 Other specified disorders of veins; K59.00 Constipation, unspecified; L60.0 Ingrowing nail; L60.2 Onychogryphosis; G47.33 Obstructive sleep apnea (adult) (pediatric); R53.81 Other malaise; Z20.828 Contact with and (suspected) exposure to other viral communicable diseases; K52.9 Noninfective gastroenteritis and colitis, unspecified; R13.10 Dysphagia, unspecified; Z74.01 Bed confinement status; Z79.4 Long term (current) use of insulin; Z79.899 Other long term (current) drug therapy; Z83.3 Family history of diabetes mellitus; Z91.14 Patient's other noncompliance with medication regimen; Z95.1 Presence of aortocoronary bypass graft; Z98.49 Cataract extraction status, unspecified eye; Y95 Nosocomial condition
CPT/HCPCS: 36247; 36415; 36600; 71045; 71250; 73502; 73630; 73718; 74230; 75630; 75635; 78452; 80048; 80053; 80061; 80202; 81003; 82435; 82550; 82803; 82947; 82948; 83036; 83605; 83735; 83874; 83880; 84100; 84132; 84145; 84295; 84484; 85018; 85025; 85027; 85610; 85651; 85730; 86140; 86850; 86900; 86901; 87040; 87070; 87076; 87077; 87186; 87486; 87581; 87633; 87798; 92610; 92611; 93005; 93017; 93306; 93356; 93925; 93970; 94640; 94660; 94664; 96374; A9500; C1894; G0378; J0696; J1644; J1650; J1940; J2543; J2785; J3370; J3490; J7050; Q9967